=== PATIENT | female | born 1955 | race Caucasian/White ===

== ENCOUNTER 2016-08-26 14:05 | Outpatient (CLI) | payer MEDICAID | END 2016-08-26 23:59 | DX: R74.8 Abnormal levels of other serum enzymes (principal); J44.9 Chronic obstructive pulmonary disease, unspecified ==

== ENCOUNTER 2016-09-08 11:18 | Outpatient (CLI) | payer MEDICAID ==
--- NOTE | 2016-09-08 14:36 | XRAY Report ---
TWO-VIEW CHEST: 09/08/2016 CLINICAL INDICATION: COPD. FINDINGS: Frontal and lateral views of the chest demonstrate a normal cardiac silhouette. The lungs are hyperinflated. No focal consolidation, effusion, or pneumothorax is present. IMPRESSION: HYPERINFLATION, COMPATIBLE WITH COPD. NO EVIDENCE OF ACUTE CARDIOPULMONARY DISEASE. JOB #: [id number] EXT JOB #:[id number]
== END 2016-09-08 11:19 | disposition home or self-care (01) ==
LOC: DI.N 11:18
PROVIDERS: ATTEND Physician Assistant
DX: J44.9 Chronic obstructive pulmonary disease, unspecified (principal)
CPT/HCPCS: 71020

== ENCOUNTER 2016-09-14 11:10 | Outpatient (CLI) | payer MEDICAID | END 2016-09-14 11:11 | disposition home or self-care (01) | DX: M50.30 Other cervical disc degeneration, unspecified cervical region (principal); M47.812 Spondylosis without myelopathy or radiculopathy, cervical region ==

== ENCOUNTER 2016-11-12 13:14 | Emergency (ER) | payer MEDICAID ==
--- NOTE | 2016-11-12 14:48 | ED Physician Documentation ---
PD HPI URI - Stated complaint Stated Complaint: DIFFICUTLY BREATHING - Chief complaint Chief Complaint: General - History obtained from History obtained from: Patient, Family - History of Present Illness Timing - onset: How many weeks ago (1.5) Timing duration: Weeks (1.5) Timing details: Gradual onset Pain level max: 0 Pain level now: 0 Associated symptoms: Nasal congestion, Rhinorrhea, Dry cough, Dyspnea (wheezing) . No: Fever, Chills, Hemoptysis, Chest pain Contributing factors: Sick contact, Travel (recently moved here) Improves by: Rest, MDI/nebulizer (inhaler) Worsened by: Activity, Breathing Similar symptoms before: Has not had sx before Recently seen: Not recently seen Review of Systems Constitutional: denies: Fever, Chills Respiratory: reports: Cough, Wheezing GI: denies: Abdominal Pain, Vomiting, Diarrhea Skin: denies: Rash Musculoskeletal: denies: Neck pain, Back pain Neurologic: denies: Headache PD PAST MEDICAL HISTORY - Past Medical History Past Medical History: Yes Cardiovascular: Hypertension Respiratory: COPD - Present Medications Home Medications: Ambulatory Orders Medication Instructions Recorded Confirmed Albuterol Sulf [Ventolin Hfa 2 puffs INH Q4HR PRN #1 inhaler 11/12/16 Inhaler] Atenolol 25 mg PO BID 11/12/16 11/12/16 Lisinopril 40 mg PO DAILY 11/12/16 11/12/16 Omeprazole [PriLOSEC] 20 mg PO DAILY 11/12/16 11/12/16 Prednisone 40 mg PO DAILY #10 tablet 11/12/16 - Allergies Allergies/Adverse Reactions: Allergies Allergy/AdvReac Type Severity Reaction Status Date / Time erythromycin base Allergy Hives Verified 11/12/16 13:29 - Social History Does the pt smoke?: Yes Smoking Status: Current every day smoker Does the pt drink ETOH?: Yes ETOH Use: Beer Does the pt have substance abuse?: No Substance Use and Type: Marijuana PD ED PE NORMAL - Vitals Vital signs reviewed: Yes - General General: Alert and oriented X 3, No acute distress, Well developed/nourished - HEENT HEENT: PERRL, Moist mucous membranes - Neck Neck: Supple, no meningeal sign - Cardiac Cardiac: RRR, Strong equal pulses - Respiratory Respiratory: No respiratory distress, Other (Mildly decreased breath sounds bilaterally with wheezing) - Abdomen Abdomen: Soft, Non tender, Non distended - Derm Derm: Warm and dry - Extremities Extremities: No edema, No calf tenderness / cord - Neuro Neuro: Alert and oriented X 3 - Psych Psych: Normal mood, Normal affect Results - Vitals Vitals: Vital Signs - 24 hr 11/12/16 11/12/16 11/12/16 13:22 15:47 15:56 Temperature 36.3 C L Heart Rate 65 56 L 60 Respiratory 17 22 20 Rate Blood Pressure 196/95 H 166/94 H O2 Saturation 95 92 Oxygen O2 Source Room air - Rads (name of study) cxr Radiology: Prelim report reviewed, EMP read contemporaneously, See rad report ( No acute disease) PD MEDICAL DECISION MAKING - ED course Complexity details: reviewed results, re-evaluated patient, considered differential, d/w patient, d/w family ED course: Patient is a 61-year-old female who presents to the emergency department what appears to be a COPD flare. She was given steroids as well as nebulizer treatments and feels greatly improved. She was given a spacer to use with her inhalers at home. Will place her on steroids for home. No evidence of pneumonia. No fevers. No hypoxia. Patient is very well-appearing, nontoxic. Patient and family counseled regarding signs and symptoms for which I believe and urgent re-evaluation would be necessary. Patient with good understanding of and agreement to plan and is comfortable going home at this time This document was made in part using voice recognition software. While efforts are made to proofread this document, sound alike and grammatical errors may occur. Departure - Departure Disposition: 01 Home, Self Care Clinical Impression: COPD exacerbation Condition: Good Instructions: ED COPD Flare Follow-Up: Rosaline Bartlett ARNP [Primary Care Provider] - Within 1 week Prescriptions: Albuterol Sulf [Ventolin Hfa Inhaler] 2 puffs INH Q4HR PRN #1 inhaler PRN Reason: Wheezing Prednisone 40 mg PO DAILY #10 tablet Comments: Return if you worsen. This should improve over the next few days. Your blood pressure was elevated today on check in to the emergency department. This does not mean that you have hypertension, it is a common phenomenon to check into the emergency department and have elevated blood pressure. I recommend that you see your primary care physician within the week to have it rechecked when you're feeling better. Discharge Date/Time: 11/12/16 17:01
--- NOTE | 2016-11-12 15:10 | XRAY Preliminary Report ---
Exam: XR Chest 2 View PA/LAT IMPRESSION: No focal consolidation. [facility] SITE ID: [id number]
--- NOTE | 2016-11-12 15:12 | XRAY Report ---
EXAM: CHEST RADIOGRAPHY EXAM DATE: 11/12/2016 03:00 PM. CLINICAL HISTORY: Cough, dyspnea. COMPARISON: Chest radiograph dated 09/08/2016. TECHNIQUE: 2 views. FINDINGS: Lungs/Pleura: No focal opacities evident. No pleural effusion. No pneumothorax. Normal volumes. Mediastinum: Heart and mediastinal contours are unremarkable. Other: None. IMPRESSION: No focal consolidation. [facility] Referring Provider Line: [phone] SITE ID: [id number]
[2016-11-12] MEDS ORDERED: IPRATROPIUM/ALBUTEROL 3 ML NEB INH STA (15:33)
[2016-11-12] MEDS ORDERED: predniSONE 20 MG TABLET PO STA (15:33)
[2016-11-12] MEDS ORDERED: predniSONE 20 MG TABLET ONE (15:40)
[2016-11-12] MEDS ORDERED: IPRATROPIUM/ALBUTEROL 3 ML NEB INH ONE (15:46)
[2016-11-12 15:47] VITALS: BP 166/94
== END 2016-11-12 17:01 | disposition home or self-care (01) ==
LOC: ED 13:14
DX: J44.1 Chronic obstructive pulmonary disease with (acute) exacerbation (principal); I10 Essential (primary) hypertension; F17.200 Nicotine dependence, unspecified, uncomplicated
CPT/HCPCS: 71020; 94640; 99283; 99284; J7512; J7620

== ENCOUNTER 2017-04-14 17:57 | Emergency (ER) | payer MEDICAID ==
[2017-04-14] MEDS ORDERED: LIDOCAINE VISCOUS 2% 15 ML UDC MM STA ×2 (18:24→20:23)
[2017-04-14] MEDS ORDERED: MAG HYDROX/AL HYDROX/SIMETH 30 ML UDC PO STA ×2 (18:24→20:23)
[2017-04-14] MEDS ORDERED: SODIUM CHLORIDE FLUSH 0.9% 10 ML SYRINGE IVP ONE ×2 (18:26→20:34)
--- NOTE | 2017-04-14 18:26 | ED Physician Documentation ---
PD HPI ABD PAIN - Stated complaint Stated Complaint: UPPER ABD PX - Chief complaint Chief Complaint: Abd Pain - History obtained from History obtained from: Patient, Family - History of Present Illness Timing - onset: Other (61-year-old woman with history of hepatitis B and C, pelvic surgery, potential COPD presents with 3 weeks of constant upper abdominal pain radiating across the upper abdomen and a little bit to the back that is worse with eating. She has had on and off vomiting without blood and waxing and waning diarrhea to constipation. She says she has not had anything to drink since very early this morning and denies any drinking this afternoon although smells of alcohol.) Review of Systems Ten Systems: 10 systems reviewed and negative Constitutional: denies: Fever, Chills Nose: denies: Rhinorrhea / runny nose, Congestion Cardiac: denies: Chest pain / pressure, Palpitations Respiratory: reports: Cough. denies: Dyspnea GI: reports: Abdominal Pain, Nausea, Vomiting, Constipation, Diarrhea. denies: Bloody / black stool PD PAST MEDICAL HISTORY - Past Medical History Cardiovascular: Hypertension Respiratory: COPD - Present Medications Home Medications: Ambulatory Orders Medication Instructions Recorded Confirmed Albuterol Sulf [Ventolin Hfa 2 puffs INH Q4HR PRN #1 inhaler 11/12/16 04/14/17 Inhaler] Lisinopril 40 mg PO DAILY 11/12/16 04/14/17 Omeprazole [PriLOSEC] 20 mg PO DAILY 11/12/16 04/14/17 Lorazepam [Ativan] 1 mg PO TID PRN #10 tablet 04/14/17 Metoprolol Tartrate 100 mg PO DAILY 04/14/17 04/14/17 Omeprazole [PriLOSEC] 20 mg PO BID #60 capsule 04/14/17 Sucralfate 1 gm PO ACHS #40 tablet 04/14/17 - Allergies Allergies/Adverse Reactions: Allergies Allergy/AdvReac Type Severity Reaction Status Date / Time erythromycin base Allergy Hives Verified 04/14/17 18:04 - Social History Does the pt smoke?: Yes Smoking Status: Current every day smoker Does the pt drink ETOH?: Yes Does the pt have substance abuse?: No - Family History Family history: reports: Non contributory PD ED PE NORMAL - Vitals Vital signs reviewed: Yes - General General: Alert and oriented X 3, No acute distress, Other (Smells of alcohol) - HEENT HEENT: PERRL, EOMI, Other (Poor dentition) - Neck Neck: Supple, no meningeal sign, No bony TTP - Cardiac Cardiac: RRR, No murmur - Respiratory Respiratory: Other (Rhonchorous throughout without respiratory distress) - Abdomen Abdomen: Other (Normal bowel tones, mild upper abdominal tenderness without surgical signs) - Derm Derm: Normal color, Warm and dry - Extremities Extremities: No edema, No calf tenderness / cord - Neuro Neuro: No motor deficit, No sensory deficit - Psych Psych: Normal mood, Normal affect Results - Vitals Vitals: Vital Signs - 24 hr 04/14/17 04/14/17 18:00 19:32 Temperature 36.8 C Heart Rate 65 60 Respiratory 18 18 Rate Blood Pressure 169/96 H 185/88 H O2 Saturation 95 95 Oxygen O2 Source Room air - EKG (time done) 1836 Rate: Rate (enter#) (60) Rhythm: NSR [place]: Normal Intervals: Normal MT, Prolonged QT (499msec) Ischemia: Normal ST segments Computer interpretation: Agree with computer - Labs Labs: Laboratory Tests 04/14/17 04/14/17 04/14/17 18:35 18:35 18:35 WBC 7.9 RBC 4.02 L Hgb 13.6 Hct 39.9 MCV 99.3 H MCH 33.9 H MCHC 34.1 RDW 13.3 Plt Count 253 MPV 8.4 Neut # 4.4 Lymph # 2.6 Hudson # 0.4 Eos # 0.4 Baso # 0.1 Absolute Nucleated RBC 0.01 Nucleated RBC % 0.1 PT 10.9 INR 1.0 Sodium 138 Potassium 4.0 Chloride 103 Carbon Dioxide 21 Anion Gap 14.0 H BUN 17 Creatinine 1.1 H Estimated GFR (MDRD) 51 L Glucose 98 Calcium 9.5 Total Bilirubin 0.4 AST 64 H ALT 49 Alkaline Phosphatase 64 Troponin I Total Protein 7.9 Albumin 4.1 Globulin 3.8 Albumin/Globulin Ratio 1.1 Lipase 50 Ethyl Alcohol 96.6 04/14/17 18:35 WBC RBC Hgb Hct MCV MCH MCHC RDW Plt Count MPV Neut # Lymph # Hudson # Eos # Baso # Absolute Nucleated RBC Nucleated RBC % PT INR Sodium Potassium Chloride Carbon Dioxide Anion Gap BUN Creatinine Estimated GFR (MDRD) Glucose Calcium Total Bilirubin AST ALT Alkaline Phosphatase Troponin I < 0.04 Total Protein Albumin Globulin Albumin/Globulin Ratio Lipase Ethyl Alcohol - Rads (name of study) Ct A/P Radiology: EMP read contemporaneously (Diverticulosis, otherwise negative) PD MEDICAL DECISION MAKING - ED course ED course: 61-year-old woman with upper abdominal pain for 3 weeks, she did have relief initially with a GI cocktail. She does seem somewhat intoxicated here. Workup was negative except for evidence of alcohol intoxication and mild liver damage, exam remained benign. She was counseled to quit drinking. Departure - Departure Disposition: Home, Self Care Clinical Impression: Alcoholic gastritis Qualifiers: Chronicity: acute Gastritis bleeding: without bleeding Qualified Code(s): K29.20 - Alcoholic gastritis without bleeding Abdominal pain Qualifiers: Abdominal location: epigastric Qualified Code(s): R10.13 - Epigastric pain Alcohol intoxication Qualifiers: Complication of substance-induced condition: uncomplicated Qualified Code(s): F10.920 - Alcohol use, unspecified with intoxication, uncomplicated Condition: Good Record reviewed to determine appropriate education?: Yes Instructions: ED Gastritis, ED Alcohol Intoxication Prescriptions: Lorazepam [Ativan] 1 mg PO TID PRN #10 tablet PRN Reason: Anxiety Omeprazole [PriLOSEC] 20 mg PO BID #60 capsule Sucralfate 1 gm PO ACHS #40 tablet Comments: As discussed is imperative to quit drinking alcohol.Call your doctor to arrange a follow-up appointment, make the next available appointment. In the interim, return anytime if worse or if new symptoms develop. Your blood pressure was elevated today on check into the emergency department. This does not mean that you have hypertension, it is a common phenomenon to come to the emergency department and have elevated blood pressure. I recommend that you see your primary care physician within the week to have it rechecked when you are feeling better.
[2017-04-14] MEDS ORDERED: LIDOCAINE VISCOUS 2% 15 ML UDC MM ONE ×2 (18:32→20:34)
[2017-04-14] MEDS ORDERED: MAG HYDROX/AL HYDROX/SIMETH 30 ML UDC ONE ×2 (18:32→20:34)
[2017-04-14] MEDS ORDERED: IOPAMIDOL-300 100 ML VIAL ONE (18:36)
[2017-04-14 18:45] LABS: BASOPHILS # (AUTO) 0.1 10^3/uL (0.0-0.1); BASOPHILS % (AUTO) 1.1 %; EOSINOPHILS # (AUTO) 0.4 10^3/uL (0.0-0.7); EOSINOPHILS % (AUTO) 4.8 %; HCT - HEMATOCRIT 39.9 % (37.0-47.0); HGB - HEMOGLOBIN 13.6 g/dL (12.0-16.0); LYMPHOCYTES # (AUTO) 2.6 10^3/uL (1.5-3.5); LYMPHOCYTES % (AUTO) 33.3 %; MEAN CORPUSCULAR HEMOGLOBIN 33.9 pg (27.0-31.0); MEAN CORPUSCULAR HGB CONC 34.1 g/dL (32.0-36.0); MEAN CORPUSCULAR VOLUME 99.3 fL (81.0-99.0); MEAN PLATELET VOLUME 8.4 fL (7.9-10.8); MONOCYTES # (AUTO) 0.4 10^3/uL (0.0-1.0); MONOCYTES % (AUTO) 5.6 %; NEUTROPHILS # (AUTO) 4.4 10^3/uL (1.5-6.6); NEUTROPHILS % (AUTO) 55.2 %; NUCLEATED RED BLOOD CELLS AUTO 0.1 /100WBC; RED BLOOD COUNT 4.02 10^6/uL (4.20-5.40); RED CELL DISTRIBUTION WIDTH 13.3 % (12.0-15.0); UNCORRECTED WHITE BLOOD COUNT 7.9 x10^3/uL; WHITE BLOOD COUNT 7.9 x10^3/uL (4.8-10.8)
[2017-04-14 18:49] LABS: PT - PROTHROMBIN TIME 10.9 secs (9.9-12.6)
[2017-04-14 18:59] LABS: ALBUMIN/GLOBULIN RATIO 1.1 (1.0-2.2); BILIRUBIN,TOTAL 0.4 mg/dL (0.2-1.0); CALCIUM 9.5 mg/dL (8.5-10.3); CREATININE 1.1 mg/dL (0.4-1.0); TOTAL PROTEIN 7.9 g/dL (6.7-8.2)
--- NOTE | 2017-04-14 19:21 | XRAY Preliminary Report ---
Exam: XR CHEST 2 VIEW PA/LAT IMPRESSION: Clear hyperinflated lungs. [facility] SITE ID: [id number]
--- NOTE | 2017-04-14 19:23 | XRAY Report ---
EXAM: CHEST RADIOGRAPHY EXAM DATE: 04/14/2017 07:01 PM. CLINICAL HISTORY: Cough. COMPARISON: 11/12/2016. TECHNIQUE: 2 views. FINDINGS: Lungs/Pleura: No focal opacities evident. No pleural effusion. No pneumothorax. Hyperinflated lungs. Mediastinum: Heart and mediastinal contours are unremarkable. Other: No compression fractures. IMPRESSION: Clear hyperinflated lungs. [facility] Referring Provider Line: [phone] SITE ID: [id number]
[2017-04-14] MEDS ORDERED: IOPAMIDOL-300 100 ML VIAL IVP ONE (19:30)
--- NOTE | 2017-04-14 20:13 | CT Preliminary Report ---
Exam: CT ABDOMEN/PELVIS W/ IMPRESSION: 1. Marked diverticulosis. No definite diverticulitis at this time. 2. Other chronic findings as described. No definite acute disease. [facility] SITE ID: [id number]
--- NOTE | 2017-04-14 20:16 | CT Report ---
EXAM: CT ABDOMEN AND PELVIS EXAM DATE: 04/14/2017 07:13 PM. CLINICAL HISTORY: IV only, upper abd pain. COMPARISONS: None. TECHNIQUE: Routine helical CT imaging was performed through the abdomen and pelvis. IV contrast: 100 cc Isovue 300. Enteric contrast: No. Reconstructions: Coronal and sagittal. In accordance with CT protocol optimization, one or more of the following dose reduction techniques w ere utilized for this exam: automated exposure control, adjustment of mA and/or KV based on patient s ize, or use of iterative reconstructive technique. FINDINGS: Lung Bases: Unremarkable. Liver: Normal. No masses. Gallbladder/Bile Ducts: Contracted. No ductal dilation. Spleen: Normal. Pancreas: Normal. Adrenal Glands: Normal. Kidneys: Mild bilateral scarring. Otherwise unremarkable. No stone or hydronephrosis. Peritoneal Cavity/Bowel: Marked colonic diverticulosis. No free fluid, free air or adenopathy. No mas ses or acute inflammatory process. The appendix is well visualized and normal. Pelvic Organs: Normal. The bladder and visualized pelvic organs are within normal limits. Vasculature: No aneurysms or other significant abnormality. Bones: Degenerative changes. Postoperative changes of the pelvis. Other: None. IMPRESSION: 1. Marked diverticulosis. No definite diverticulitis at this time. 2. Other chronic findings as described. No definite acute disease. [facility] Referring Provider Line: [phone] SITE ID: [id number]
[2017-04-14] MEDS ORDERED: SUCRALFATE 1 GM/10 ML UDC PO STA (20:23)
[2017-04-14] MEDS ORDERED: PANTOPRAZOLE 40 MG VIAL IVP STA (20:23)
[2017-04-14] MEDS ORDERED: SUCRALFATE 1 GM/10 ML UDC ONE (20:33)
[2017-04-14] MEDS ORDERED: PANTOPRAZOLE 40 MG VIAL ONE (20:34)
[2017-04-14 20:44] VITALS: BP 179/90
== END 2017-04-14 20:40 | disposition home or self-care (01) ==
LOC: ED 17:57
DX: R10.13 Epigastric pain (principal); F10.920 Alcohol use, unspecified with intoxication, uncomplicated; I10 Essential (primary) hypertension; F17.200 Nicotine dependence, unspecified, uncomplicated; Z86.19 Personal history of other infectious and parasitic diseases
CPT/HCPCS: 36415; 71020; 74177; 80053; 80320; 83690; 84484; 85025; 85610; 93005; 96374; 99284; A9270; Q9967

== ENCOUNTER 2017-11-19 13:56 | Outpatient (CLI) | payer MEDICAID ==
[2017-11-19 19:08] LABS: ALBUMIN 4.4 g/dL (3.2-5.5); ALBUMIN/GLOBULIN RATIO 1.2 (1.0-2.2); BILIRUBIN,TOTAL 0.8 mg/dL (0.2-1.0); CALCIUM 9.5 mg/dL (8.5-10.3); CREATININE 1.2 mg/dL (0.4-1.0); TOTAL PROTEIN 8.1 g/dL (6.7-8.2)
[2017-11-19 19:12] LABS: BASOPHILS # (AUTO) 0.1 10^3/uL (0.0-0.1); BASOPHILS % (AUTO) 1.4 %; EOSINOPHILS # (AUTO) 0.3 10^3/uL (0.0-0.7); EOSINOPHILS % (AUTO) 3.5 %; HGB - HEMOGLOBIN 12.3 g/dL (12.0-16.0); LYMPHOCYTES # (AUTO) 2.4 10^3/uL (1.5-3.5); MEAN CORPUSCULAR HEMOGLOBIN 32.2 pg (27.0-31.0); MEAN CORPUSCULAR HGB CONC 33.3 g/dL (32.0-36.0); MEAN CORPUSCULAR VOLUME 96.6 fL (81.0-99.0); MEAN PLATELET VOLUME 9.8 fL (7.9-10.8); MONOCYTES # (AUTO) 0.6 10^3/uL (0.0-1.0); MONOCYTES % (AUTO) 8.3 %; NEUTROPHILS % (AUTO) 53.8 %; PLT - PLATELET COUNT 220 10^3/uL (130-450); RED BLOOD COUNT 3.82 10^6/uL (4.20-5.40); RED CELL DISTRIBUTION WIDTH 13.5 % (12.0-15.0); WHITE BLOOD COUNT 7.4 x10^3/uL (4.8-10.8)
== END 2017-11-19 13:57 | disposition home or self-care (01) ==
LOC: LAB.N 13:56
PROVIDERS: ATTEND Family Medicine
DX: B18.2 Chronic viral hepatitis C (principal); R10.11 Right upper quadrant pain
CPT/HCPCS: 36415; 80053; 82150; 83690; 85025; 85651; 87522

== ENCOUNTER 2018-01-20 21:03 | Outpatient (CLI) | payer MEDICAID ==
--- NOTE | 2018-01-20 23:40 | Ultrasound Report ---
Procedure Date: 01/20/2018 Accession Number: [id number] / [id number] Procedure: US - Duplex Ext Veins Left CPT Code: FULL RESULT: EXAM: LEFT LOWER EXTREMITY VENOUS ULTRASOUND EXAM DATE: 01/20/2018 09:14 PM. CLINICAL HISTORY: Localized swelling on lower leg, left. COMPARISON: None. TECHNIQUE: Real-time sonographic vascular imaging was performed by the home demonstration agent through the lower extremity utilizing both color-flow and Doppler spectral analysis. Multiple senior customer service representative static images were saved for review. FINDINGS: Common Femoral Vein (CFV): Normal. CFV-GSV Junction: Normal. Profunda Femoral Vein (PFV): Normal. Femoral Vein (FV) Prox: Normal. Femoral Vein (FV) Mid: Normal. Femoral Vein (FV) Dist: Normal. Popliteal Vein: Normal. Posterior Tibial Veins: Normal. Peroneal Veins: Normal. Contralateral Side CFV: Normal. Other: Limited visualization of the left posterior tibial and peroneal vein. IMPRESSION: 1. Suboptimal visualization of posterior tibial and peroneal vein. 2. Given the limitations, no evidence for deep venous thrombosis. [facility]
== END 2018-01-20 21:04 | disposition home or self-care (01) ==
LOC: DI 21:03
PROVIDERS: ATTEND Family Medicine
DX: R22.42 Localized swelling, mass and lump, left lower limb (principal)

== ENCOUNTER → 2018-05-09 | Outpatient (CLI) | payer MEDICAID ==
[2018-05-09 18:50] LABS: CALCIUM 9.5 mg/dL (8.5-10.3); CREATININE 1.2 mg/dL (0.4-1.0)
== END ==
LOC: LAB.N 13:42
PROVIDERS: ATTEND Family Medicine
DX: I10 Essential (primary) hypertension (principal); R94.6 Abnormal results of thyroid function studies
CPT/HCPCS: 36415; 80048; 84443

== ENCOUNTER 2018-06-02 13:47 | Outpatient (CLI) | payer MEDICAID ==
[2018-06-02 18:33] LABS: BASOPHILS # (AUTO) 0.1 10^3/uL (0.0-0.1); EOSINOPHILS # (AUTO) 0.5 10^3/uL (0.0-0.7); EOSINOPHILS % (AUTO) 7.6 %; HGB - HEMOGLOBIN 12.7 g/dL (12.0-16.0); LYMPHOCYTES # (AUTO) 2.1 10^3/uL (1.5-3.5); LYMPHOCYTES % (AUTO) 34.7 %; MEAN CORPUSCULAR HEMOGLOBIN 32.9 pg (27.0-31.0); MEAN CORPUSCULAR HGB CONC 32.8 g/dL (32.0-36.0); MEAN CORPUSCULAR VOLUME 100.3 fL (81.0-99.0); MEAN PLATELET VOLUME 9.3 fL (7.9-10.8); MONOCYTES # (AUTO) 0.4 10^3/uL (0.0-1.0); MONOCYTES % (AUTO) 6.5 %; NEUTROPHILS # (AUTO) 2.9 10^3/uL (1.5-6.6); NEUTROPHILS % (AUTO) 49.2 %; PLT - PLATELET COUNT 229 10^3/uL (130-450); RED BLOOD COUNT 3.85 10^6/uL (4.20-5.40); WHITE BLOOD COUNT 5.9 x10^3/uL (4.8-10.8)
== END 2018-06-02 23:59 | disposition home or self-care (01) ==
LOC: LAB.N 13:47
PROVIDERS: ATTEND Nurse Practitioner Gerontology
DX: L03.116 Cellulitis of left lower limb (principal); R22.42 Localized swelling, mass and lump, left lower limb; R60.9 Edema, unspecified
CPT/HCPCS: 36415; 85025; 85379

== ENCOUNTER 2018-06-24 16:24 | Outpatient (CLI) | payer MEDICAID ==
--- NOTE | 2018-06-25 23:55 | Ultrasound Report ---
Reason: EDEMA,LOCALIZED SWELLING ON LOWER LEG,LEFT Procedure Date: 06/24/2018 Accession Number: [id number] / [id number] Procedure: US - Duplex Ext Veins Left CPT Code: FULL RESULT: EXAM: LEFT LOWER EXTREMITY VENOUS ULTRASOUND EXAM DATE: 06/24/2018 04:53 PM. CLINICAL HISTORY: EDEMA,LOCALIZED SWELLING ON LOWER LEG,LEFT. COMPARISON: DUPLEX EXT VEINS LEFT 01/20/2018 9:14 PM. TECHNIQUE: Real-time sonographic vascular imaging was performed by the watershed coordinator through the lower extremity utilizing both color-flow and Doppler spectral analysis. Multiple manufacturer's service representative static images were saved for review. FINDINGS: Common Femoral Vein (CFV): Normal. CFV-GSV Junction: Normal. Profunda Femoral Vein (PFV): Normal. Femoral Vein (FV) Prox: Normal. Femoral Vein (FV) Mid: Normal. Femoral Vein (FV) Dist: Normal. Popliteal Vein: Normal. Posterior Tibial Veins: Normal. Peroneal Veins: Normal. Contralateral Side CFV: Normal. Other: None. IMPRESSION: No evidence for deep venous thrombosis. [facility]
== END 2018-06-24 16:25 | disposition home or self-care (01) ==
LOC: DI 16:24
PROVIDERS: ATTEND Nurse Practitioner Gerontology
DX: R60.9 Edema, unspecified (principal); R22.42 Localized swelling, mass and lump, left lower limb

== ENCOUNTER 2018-09-16 08:00 | Outpatient (CLI) | payer MEDICAID ==
[2018-09-16 18:49] LABS: BILIRUBIN,URINE NEGATIVE (NEGATIVE); GLUCOSE, URINE (UA) NEGATIVE (NEGATIVE); KETONES,URINE (UA) NEGATIVE (NEGATIVE); LEUKOCYTE ESTERASE, URINE NEGATIVE (NEGATIVE); NITRITE,URINE NEGATIVE (NEGATIVE); OCCULT BLOOD,URINE NEGATIVE (NEGATIVE); PH,URINE 5.5 PH (5.0-7.5); PROTEIN,URINE NEGATIVE (NEGATIVE); UROBILINOGEN,URINE 0.2 (NORMAL) E.U./dL (NORMAL)
[2018-09-16 18:51] LABS: CLARITY,URINE CLEAR (CLEAR)
== END 2018-09-16 23:59 | disposition home or self-care (01) ==
LOC: LAB.R 08:00
DX: R35.0 Frequency of micturition (principal)
CPT/HCPCS: 81001; 81003; 87086

== ENCOUNTER 2018-09-28 13:35 | Outpatient (CLI) | payer MEDICAID ==
[2018-09-28 19:11] LABS: ALBUMIN 4.2 g/dL (3.2-5.5); ALBUMIN/GLOBULIN RATIO 1.2 (1.0-2.2); BILIRUBIN,TOTAL 1.1 mg/dL (0.2-1.0); CALCIUM 9.5 mg/dL (8.5-10.3); CREATININE 1.1 mg/dL (0.4-1.0); TOTAL PROTEIN 7.7 g/dL (6.7-8.2)
== END 2018-09-28 13:36 | disposition home or self-care (01) ==
LOC: LAB.N 13:35
PROVIDERS: ATTEND Nurse Practitioner Gerontology
DX: R22.42 Localized swelling, mass and lump, left lower limb (principal); B18.2 Chronic viral hepatitis C
CPT/HCPCS: 36415; 80053

== ENCOUNTER 2018-10-06 14:45 | Outpatient (CLI) | payer MEDICAID ==
--- NOTE | 2018-10-10 07:43 | CT Report ---
Reason: PAIN SWELLING ON LOWER LEG LEFT Procedure Date: 10/06/2018 Accession Number: [id number] / [id number] Procedure: CT - LOWER EXTREMITY WO - LT CPT Code: FULL RESULT: EXAM: LEFT LOWER EXTREMITY CT WITHOUT CONTRAST EXAM DATE: 10/06/2018 04:51 PM. CLINICAL HISTORY: Pain and swelling of the left lower extremity. COMPARISON: DUPLEX EXT VEINS LEFT 06/24/2018 4:37 PM. TECHNIQUE: Please note that a noncontrast examination was inadvertently performed. If interpretation of this examination does not answer the clinical question at hand, the examination may be repeated with contrast. Thin-section axial images were acquired of the left lower extremity without contrast. Post-processing: Coronal and sagittal reformats. Other: None. In accordance with CT protocol optimization, one or more of the following dose reduction techniques were utilized for this exam: automated exposure control, adjustment of mA and/or KV based on patient size, or use of iterative reconstructive technique. FINDINGS: Bones: No fracture or bone lesion. Joints: The joint spaces are preserved. No calcified loose bodies. No large effusion. Musculature: Normal. No fatty atrophy. Other: Soft tissues starting at the distal thigh demonstrate abundant superficial edema and skin thickening. Additionally, prominent tortuous vessels are seen in the subcutaneous soft tissues. These likely represent superficial varicose veins. IMPRESSION: Soft tissue swelling, suspect venous etiology. Recommendation: This patient likely suffers from venous disease amenable to percutaneous therapy. [facility] The call report notification system was initiated by Dr. Jarrell Harrison at 01:47 PM on 10/07/2018. ADDENDUM: 10/07/18 15:26 The above call report findings were discussed with Liz Fitzpatrick by Dr. Jarrell Harrison at 03:26 PM on 10/07/2018.
== END 2018-10-06 14:46 | disposition home or self-care (01) ==
LOC: DI 14:45
PROVIDERS: ATTEND Nurse Practitioner Gerontology
DX: M79.662 Pain in left lower leg (principal); R22.42 Localized swelling, mass and lump, left lower limb

== ENCOUNTER 2018-11-14 16:41 | Outpatient (CLI) | payer MEDICAID ==
--- NOTE | 2018-11-14 23:53 | Ultrasound Report ---
Reason: VENOUS INFUFFICIENCY Procedure Date: 11/14/2018 Accession Number: [id number] / [id number] Procedure: US - Duplex Venous Limited CPT Code: FULL RESULT: EXAM: LEFT LOWER EXTREMITY VENOUS ULTRASOUND EXAM DATE: 11/14/2018 04:54 PM. CLINICAL HISTORY: Venous insufficiency. COMPARISON: LOWER EXTREMITY LEFT W/ 10/06/2018 3:52 PM DUPLEX EXT VEINS LEFT 06/24/2018 4:37 PM. TECHNIQUE: Real-time sonographic vascular imaging was performed by the forest fire equipment operator through the lower extremity utilizing both color-flow and Doppler spectral analysis. Multiple insurance sales representative static images were saved for review. FINDINGS: Common Femoral Vein (CFV): Normal. CFV-GSV Junction: Normal. Profunda Femoral Vein (PFV): Normal. Femoral Vein (FV) Prox: Normal. Femoral Vein (FV) Mid: Normal. Femoral Vein (FV) Dist: Normal. Popliteal Vein: Normal. Posterior Tibial Veins: Normal. Peroneal Veins: Normal. Contralateral Side CFV: Normal. Other: None. IMPRESSION: No evidence for deep venous thrombosis. [facility]
== END 2018-11-14 16:42 | disposition home or self-care (01) ==
LOC: DI 16:41
PROVIDERS: ATTEND Nurse Practitioner Gerontology
DX: I87.2 Venous insufficiency (chronic) (peripheral) (principal)
CPT/HCPCS: 93971

== ENCOUNTER 2019-03-06 08:50 | Outpatient (CLI) | payer MEDICAID ==
--- NOTE | 2019-03-07 09:01 | Ultrasound Report ---
Reason: ABDOMINAL PAIN Procedure Date: 03/06/2019 Accession Number: [id number] / [id number] Procedure: US - Abdomen Complete CPT Code: FULL RESULT: EXAM: ABDOMEN ULTRASOUND EXAM DATE: 03/06/2019 11:29 AM. CLINICAL HISTORY: ABDOMINAL PAIN. COMPARISON: ABDOMEN/PELVIS W/ 04/14/2017 7:13 PM. TECHNIQUE: Real-time scanning was performed with static images obtained. FINDINGS: Liver: Normal in size and mildly increased in echotexture. Vijaya lobe. 17.3 cm. Main portal vein flow: Hepatopetal. Gallbladder: Sub-centimeter polyps. One tiny nonobstructing stone. Biliary System: Common bile duct measures 3 mm. No intrahepatic or extrahepatic ductal dilatation. Pancreas: Imaged portion is unremarkable. Kidneys: Right: 9.9 cm longitudinally. Normal. No contour-deforming mass, stones, or hydronephrosis. Mildly prominent central collecting system. Left: 9.6 cm longitudinally. Normal. No contour-deforming mass, stones, or hydronephrosis. Spleen: 8.9 cm. Normal in size and echotexture. Aorta and Inferior Vena Cava: Unremarkable. Free fluid: None. IMPRESSION: Gallbladder has several sub-centimeter polyps and one tiny nonobstructing stone. Vijaya's lobe with minor fatty infiltration of the liver. Otherwise negative abdomen ultrasound. [facility]
== END 2019-03-06 08:51 | disposition home or self-care (01) ==
LOC: DI 08:50
PROVIDERS: ATTEND Nurse Practitioner Gerontology
DX: K80.20 Calculus of gallbladder without cholecystitis without obstruction (principal); K76.0 Fatty (change of) liver, not elsewhere classified
CPT/HCPCS: 76700

== ENCOUNTER 2019-03-30 14:43 | Outpatient (CLI) | payer MEDICAID ==
[2019-03-30 18:56] LABS: BASOPHILS # (AUTO) 0.1 10^3/uL (0.0-0.1); BASOPHILS % (AUTO) 0.8 %; EOSINOPHILS # (AUTO) 0.3 10^3/uL (0.0-0.7); EOSINOPHILS % (AUTO) 4.2 %; HGB - HEMOGLOBIN 11.8 g/dL (12.0-16.0); LYMPHOCYTES # (AUTO) 2.4 10^3/uL (1.5-3.5); LYMPHOCYTES % (AUTO) 31.4 %; MEAN PLATELET VOLUME 10.6 fL (7.9-10.8); MONOCYTES # (AUTO) 0.5 10^3/uL (0.0-1.0); MONOCYTES % (AUTO) 6.4 %; NEUTROPHILS # (AUTO) 4.3 10^3/uL (1.5-6.6); NEUTROPHILS % (AUTO) 56.8 %; PLT - PLATELET COUNT 250 10^3/uL (130-450); RED BLOOD COUNT 3.58 10^6/uL (4.20-5.40); RED CELL DISTRIBUTION WIDTH 13.3 % (12.0-15.0); WHITE BLOOD COUNT 7.5 x10^3/uL (4.8-10.8)
[2019-03-30 19:10] LABS: ALBUMIN 4.2 g/dL (3.2-5.5); ALBUMIN/GLOBULIN RATIO 1.2 (1.0-2.2); BILIRUBIN,TOTAL 0.6 mg/dL (0.2-1.0); CALCIUM 9.4 mg/dL (8.5-10.3); CREATININE 1.1 mg/dL (0.4-1.0); TOTAL PROTEIN 7.6 g/dL (6.7-8.2)
== END 2019-03-30 23:59 | disposition home or self-care (01) ==
LOC: LAB.N 14:43
PROVIDERS: ATTEND Nurse Practitioner Gerontology
DX: R10.9 Unspecified abdominal pain (principal)
CPT/HCPCS: 36415; 80053; 85025